=== PATIENT | male | born 2000 | race Caucasian/White ===

== ENCOUNTER 2025-08-06 01:41 | Emergency (ER) | payer OTHER ==
[~2025-08-06] VITALS: Ht 190.5 cm; Wt 77.3 kg
[2025-08-06 01:52] LABS: MCH 31.6 PG (25.7-32.2); MCHC 35.8 g/dL (32.3-36.5); MCV 88.3 fL (79.0-92.2); RBC 5.12 M/uL (4.63-6.08)
[2025-08-06 02:09] LABS: BANDS, MANUAL DIFF 2; EOSINOPHILS, MANUAL DIFF 4; LYMPHOCYTES, MANUAL DIFF 70; MONOCYTES, MANUAL DIFF 3; NEUTROPHILS, MANUAL DIFF 21
[2025-08-06 02:14] LABS: ALT (SGPT) 22.0 U/L (14-59); AST (SGOT) 11.0 U/L (15-37); GLOMERULAR FILTRATION RATE,EST 78.0 mL/min (>60); PROTEIN, TOTAL 7.9 g/dL (6.4-8.2); UREA NITROGEN 10.0 mg/dL (7-18)
[2025-08-06] MEDS ORDERED: SODIUM CHLORIDE 0.9% 1,000 ML IV SCH (02:15)
[2025-08-06 04:17] LABS: AMPHETAMINES, URINE NEGATIVE (NEGATIVE); BARBITURATES, URINE NEGATIVE (NEGATIVE); BENZODIAZEPINE, URINE NEGATIVE (NEGATIVE); CANNABINOID, URINE POSITIVE (NEGATIVE); COCAINE, URINE NEGATIVE (NEGATIVE); ECSTASY, URINE NEGATIVE (NEGATIVE); FENTANYL, URINE NEGATIVE (NEGATIVE); METHADONE, URINE NEGATIVE (NEGATIVE); OPIATES, URINE NEGATIVE (NEGATIVE); OXYCODONE, URINE NEGATIVE (NEGATIVE); PHENCYCLIDINE, URINE NEGATIVE (NEGATIVE)
[2025-08-06 05:07] VITALS: BP 117/73
--- NOTE | 2025-08-07 12:02 | EKG ---
[facility] [address] [facility] [place], [place] [address] Signed Sinus tachycardia Otherwise normal ECG No previous ECGs available Confirmed by Luz Hoskins DO ([id number]) on 08/07/2025 12:01:53 PM Electronically Signed By: LUZ HOSKINS DO 08/07/25 1202 PATIENT NAME: OSIRIS VALVERDE Electrocardiogram DATE OF : [birth year] PHYSICIAN: LUZ HOSKINS DO REPORT #: [id number] REPORT IS CONFIDENTIAL AND NOT TO BE RELEASED WITHOUT AUTHORIZATION
== END 2025-08-06 05:09 | disposition home or self-care (01) ==
LOC: ED 01:41
PROVIDERS: Emergency Medicine
DX: F12.10 Cannabis abuse, uncomplicated (principal)
CPT/HCPCS: 36415; 80053; 80307; 85025; 93005; 93010; 99285; J7030